=== PATIENT | female | born 1990 | race Caucasian/White ===

== ENCOUNTER 2019-06-10 09:20 | Inpatient (IN) | payer OTHER ==
[~2019-06-10] VITALS: Ht 172.7 cm; Wt 65.5 kg
[~2019-06-10 09:20] MED LIST: HYDR-3686 PO; SERT-153 PO
[2019-06-10 12:29] VITALS: BP 110/58
[2019-06-10] MEDS ORDERED: zolpidem 5mg tablet PO PRN (12:35)
[2019-06-10] MEDS ORDERED: mag hydrox/Alum hydrox/simeth 30ml oral suspension PO PRN (12:35)
[2019-06-10] MEDS ORDERED: LORazepam 0.5 MG tablet PO PRN (12:35)
[2019-06-10] MEDS ORDERED: loperamide 2mg capsule PO PRN (12:35)
[2019-06-10] MEDS ORDERED: acetaminophen 325mg tablet PO PRN ×2 (12:35)
[2019-06-10] MEDS ORDERED: QUEtiapine 25mg tablet PO PRN (12:35)
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
[2019-06-10] MEDS: ketoconazole (Nizoral) shampoo TP SCH (16:05)
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
[2019-06-10] MEDS: triamcinolone acet 0.1% cream 15gm TP SCH ×2 (16:51→20:10)
[2019-06-10] MEDS: QUEtiapine 25mg tablet PO PRN (16:51)
[2019-06-10 20:00] VITALS: BP 98/60
[2019-06-10] MEDS: lamoTRIgine 25mg tablet PO SCH (20:12)
[2019-06-10] MEDS: QUEtiapine 25mg tablet PO SCH (20:12)
[2019-06-10] MEDS: magnesium hydroxide 30ml (MOM) UD suspension PO PRN (20:31)
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
[2019-06-11 08:00] VITALS: BP 112/56
[2019-06-11] MEDS: ketoconazole (Nizoral) shampoo TP SCH (08:00)
[2019-06-11] MEDS: triamcinolone acet 0.1% cream 15gm TP SCH ×2 (08:00→20:00)
[2019-06-11] MEDS ORDERED: hydrOXYzine 25 MG tablet PO SCH (08:00)
[2019-06-11] MEDS: sertraline 50mg tablet PO SCH (08:12)
[2019-06-11 08:28] LABS: HEMOGLOBIN A1C 5.6 % (4.5-6.2)
[2019-06-11 08:35] LABS: CHOL/HDL RATIO 2.6 (0.00-4.99); CHOLESTEROL 147 MG/DL (0-200); HDL CHOLESTEROL 56 MG/DL (35-60); LDL CHOLESTEROL 79 MG/DL (50-100); TRIGLYCERIDES 69 MG/DL (20-135)
--- NOTE | 2019-06-11 16:04 | NUR ---
Critical Lab: Pt tested positive for MRSA during nasal swab. Pt educated on hand washing and infection control.
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
[2019-06-11 20:44] VITALS: BP 94/58
[2019-06-11] MEDS: QUEtiapine 25mg tablet PO SCH (21:19)
[2019-06-11] MEDS: lamoTRIgine 25mg tablet PO SCH (21:19)
[2019-06-11] MEDS: magnesium hydroxide 30ml (MOM) UD suspension PO PRN (21:29)
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
[2019-06-12] MEDS: sertraline 50mg tablet PO SCH (07:41)
[2019-06-12] MEDS: QUEtiapine 25mg tablet PO PRN (07:42)
[2019-06-12 08:00] VITALS: BP 104/60
[2019-06-12] MEDS: triamcinolone acet 0.1% cream 15gm TP SCH ×2 (08:00→20:00)
[2019-06-12] MEDS: ketoconazole (Nizoral) shampoo TP SCH (08:00)
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
[2019-06-12] MEDS ORDERED: sertraline 50mg tablet PO ONE (15:15)
--- NOTE | 2019-06-12 16:23 | NUR ---
MRSA swab came back positive for pt. Nurse educated pt on the results and what that means. She stated understanding and stated she did not have any questions about for the nurse at this time.
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
[2019-06-12 20:00] VITALS: BP 114/62
[2019-06-12] MEDS: QUEtiapine 25mg tablet PO SCH (20:11)
[2019-06-12] MEDS: lamoTRIgine 25mg tablet PO SCH (20:11)
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
[2019-06-13 07:50] VITALS: BP 112/65
[2019-06-13] MEDS: ketoconazole (Nizoral) shampoo TP SCH (07:53)
[2019-06-13] MEDS: triamcinolone acet 0.1% cream 15gm TP SCH (07:53)
[2019-06-13] MEDS ORDERED: sertraline 25mg tablet PO SCH (08:00)
[2019-06-13] MEDS ORDERED: SERT25TA5 PO (11:51)
[2019-06-13] MEDS ORDERED: LAMO25TA5 PO (11:51)
[2019-06-13] MEDS ORDERED: QUET50TA22 PO (11:51)
[2019-06-13] MEDS ORDERED: HYDR-3686 PO (11:51)
--- NOTE | 2019-06-13 14:00 | NUR ---
DISCHARGE NOTE: Pt denied depression and SI, stated she took the cold medicine to get high [facility] believed she may have a problem with addiction. She now feels that she is not addicted as she doesn't do it very often, she feels it is a poor coping mechanism. Pt became distraught/tearful over learning of the firearms prohibition since she was on a 5150 hold, pt stated that the [facility] the [facility] just ruined her life as she will now be discharged from the [employer]. Pt has been in the [employer] for 8 years. Education provided on the process for requesting a hearing to repeal the firearms prohibition. 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 Pt stated that she will never ask for help again. Pt also stated that the doctor had said he would write her a note excusing her from work and school during her hospital stay. deer farm worker Arcelia notified of pt's concerns. Arcelia came and spoke with the pt, she will contact Dr Mcmanus about the note. Pt was provided a brochure with patient's rights information and the patient advocates phone number. Pt ambulated off the unit with CANDELARIA Paniagua at 1340, a cab was [facility] for [facility]. Pt's belongings were obtained from the ambulance bay lockers and all belongings returned to her upon discharge.
== END 2019-06-13 13:40 | disposition home or self-care (01) | DRG 881 ==
LOC: ADULT MH 09:20 → UNDOADMIN 10:43 → ADULT MH 10:43
PROVIDERS: ADMIT Psychiatry & Neurology Psychiatry; ATTEND Psychiatry & Neurology Psychiatry
DX: F32.9 Major depressive disorder, single episode, unspecified (principal); R45.851 Suicidal ideations; K59.00 Constipation, unspecified; F43.10 Post-traumatic stress disorder, unspecified; Z62.810 Personal history of physical and sexual abuse in childhood; F12.90 Cannabis use, unspecified, uncomplicated; L40.9 Psoriasis, unspecified; M54.9 Dorsalgia, unspecified; Z79.899 Other long term (current) drug therapy; Z81.8 Family history of other mental and behavioral disorders; Z83.3 Family history of diabetes mellitus
CPT/HCPCS: 36415; 80061; 83036; 87081

== ENCOUNTER 2019-09-12 03:40 | Emergency (ER) | payer OTHER ==
[~2019-09-12] VITALS: Ht 172.7 cm; Wt 65.9 kg
[~2019-09-12 03:40] MED LIST changes: +LAMO25TA5 PO; +QUET50TA22 PO; -SERT-153 PO; +SERT25TA5 PO
--- NOTE | 2019-09-12 04:08 | NUR ---
DR SIMMONS AT BEDSIDE, FOLLOWING ASSESSMENT CONDITION DEEMED NON EMERGENT IN NATURE. DR SIMMONS STATED THAT THERE WAS NO FURTHER WORK UP NECESSARY AT THIS TIME PENDING THE TEST. PATIENT STATING THAT SHE "WOULD JUST LEAVE THEN" PATIENT LEFT WITHOUT SIGNING OR RECEIVING DISCHARGE PAPERWORK.
[2019-09-12 04:10] VITALS: BP 126/84
[2019-09-12 04:10] LABS: URINE HCG NEGATIVE (NEG)
== END 2019-09-12 04:14 | disposition home or self-care (01) ==
LOC: ER 03:41
DX: R14.0 Abdominal distension (gaseous) (principal); M79.675 Pain in left toe(s); R11.10 Vomiting, unspecified; Z72.89 Other problems related to lifestyle; Z79.899 Other long term (current) drug therapy
CPT/HCPCS: 81025; 99283

== ENCOUNTER 2019-09-22 00:36 | Emergency (ER) | payer OTHER ==
[~2019-09-22] VITALS: Ht 172.7 cm; Wt 63.6 kg
[2019-09-22 00:50] VITALS: BP 130/62
[2019-09-22 01:55] LABS: URINE AMPHETAMINE SCREEN NEGATIVE (Neg); URINE BARBITUATE SCREEN NEGATIVE (Neg); URINE BENZODIAZEPINES SCREEN NEGATIVE (Neg); URINE CANNABINOID SCREEN POSITIVE (Neg); URINE COCAINE SCREEN NEGATIVE (Neg); URINE METHADONE SCREEN NEGATIVE (Neg); URINE OPIATE SCREEN POSITIVE (Neg); URINE PHENCYCLIDINE SCREEN POSITIVE (Neg)
--- NOTE | 2019-09-22 03:43 | NUR ---
CHAPERONED MD KEITH AT BEDSIDE TO DO RECTAL EXAM. REPORTED TO PT THAT HER EXAM WAS NORMAL AND THERE WERE NO MASSES PRESENT. PT BECAME UPSET AND DOESN'T BELIEVE THIS TO BE TRUE. SHE REMOVED HER BP CUFF AND STORMED OUT OF THE ROOM CALLING THE PHYSICIAN AN "ASSHOLE" - PT WAS D\\C READY AND LEFT WITHOUT PAPERWORK.
== END 2019-09-22 03:43 | disposition home or self-care (01) ==
LOC: ER 00:36
DX: Z00.8 Encounter for other general examination (principal); R05 Cough; R07.89 Other chest pain; Z72.89 Other problems related to lifestyle; Z79.899 Other long term (current) drug therapy
CPT/HCPCS: 80305; 99283